=== PATIENT | male | born 2000 ===

== ENCOUNTER 2021-09-23 20:28 | Outpatient (REF) | payer MEDICAID, SELFPAY ==
[2021-09-23 21:26] LABS: Albumin 4.4 g/dL (3.4-5.0)
== END 2021-09-23 20:29 | disposition home or self-care (01) ==
LOC: LBN 20:28
PROVIDERS: Visit Provider Plastic Surgery Surgery of the Hand
DX: L05.92 Pilonidal sinus without abscess (principal)
CPT/HCPCS: 82040